=== PATIENT | female | born 1955 | race Caucasian/White ===

== ENCOUNTER 2023-08-28 07:12 | Observation (INO) ==
--- NOTE | 2023-08-04 14:56 | PAT Medication Instructions ---
Medication Instructions Date of Service August 04, 2023 Home Medications atorvastatin 40 mg tablet (Lipitor) 40 mg PO QAM fluoxetine 40 mg capsule (Prozac) 40 mg PO QAM lorazepam 0.5 mg tablet (Ativan) 0.5 mg PO TID PRN Anxiety losartan 25 mg tablet (Cozaar) 25 mg PO QAM omeprazole 20 mg capsule,delayed release 20 mg PO BID biotin 1,000 mcg chewable tablet 1,000 mcg PO QAM dicyclomine 10 mg capsule 10 mg PO UD PRN ibs ezetimibe 10 mg tablet (Zetia) 10 mg PO HS furosemide 20 mg tablet (Lasix) 20 mg PO UD PRN Edema sumatriptan succinate 50 mg tablet (Imitrex) 50 mg PO UD PRN migraines DO NOT take the morning of surgery losartan 25 mg tablet (Cozaar) 25 mg PO QAM biotin 1,000 mcg chewable tablet 1,000 mcg PO QAM dicyclomine 10 mg capsule 10 mg PO UD PRN ibs furosemide 20 mg tablet (Lasix) 20 mg PO UD PRN Edema Take morning of surgery With a small sip of water, OTHERWISE NOTHING TO EAT OR DRINK AFTER MIDNIGHT: atorvastatin 40 mg tablet (Lipitor) 40 mg PO QAM fluoxetine 40 mg capsule (Prozac) 40 mg PO QAM lorazepam 0.5 mg tablet (Ativan) 0.5 mg PO TID PRN Anxiety (if needed) omeprazole 20 mg capsule,delayed release 20 mg PO BID sumatriptan succinate 50 mg tablet (Imitrex) 50 mg PO UD PRN migraines (if needed) Take evening before surgery lorazepam 0.5 mg tablet (Ativan) 0.5 mg PO TID PRN Anxiety (if needed) omeprazole 20 mg capsule,delayed release 20 mg PO BID dicyclomine 10 mg capsule 10 mg PO UD PRN ibs (if needed) ezetimibe 10 mg tablet (Zetia) 10 mg PO HS furosemide 20 mg tablet (Lasix) 20 mg PO UD PRN Edema (if needed) sumatriptan succinate 50 mg tablet (Imitrex) 50 mg PO UD PRN migraines (if needed) Other Notes If you have any questions please call us at [phone] or [phone] or or [phone]
--- NOTE | 2023-08-13 08:42 | Anesthesiology Consultation ---
Date of Service August 13, 2023 Assessment & Plan (1) Encounter for pre-operative examination: - Check BSG AM DOS - Infectious disease screening: Per assessment on 08/13/23: No known infectious disease contacts or current infectious disease symptoms. No noted recent Covid positive test result. - Outpatient joint assessment: Pt currently scheduled for inpatient pathway. If surgeon requests review for outpatient joint pathway, patient is not recommended candidate for outpatient joint program from anesthesia standpoint. - Hx PONV: Patient request preop antiemetic if possible* - Preop EKG: Done 08/13/23- per report, U-waves present, r/o electrolyte imbalance. 08/13/23 BMP unremarkable. At anesthesiologist discretion DOS if updated EKG or further labs needed from their perspective. Chart Review Chart Review: Acceptable Risk for Surgery and Patient seen in Pre Admission Testing Teaching & Discussion Pre-Anesthesia Teaching/Discussion Notes: Instructed NPO after midnight before surgery,except medications with 15 cc of water. Medication instructions provided according to the PAT guidelines. History Surgery Operation Date: 08/28/23 07:00 Proposed Procedures p Right Total Knee Arthroplasty - Zeus Grossman MD Height/Weight Height: 5 ft 2 in Weight: 111.9 kg Allergies Allergy/AdvReac Type Severity Reaction Status Date / Time NSAIDS (Non-Steroidal AdvReac Unknown GI distress Verified 08/11/23 13:43 Anti-Inflamma rosuvastatin [From Crestor] AdvReac Unknown Altered Verified 08/11/23 13:43 liver function simvastatin [From Zocor] AdvReac Unknown Altered Verified 08/11/23 13:43 liver function Medications Home Medications Medication Instructions Recorded Confirmed Last Taken atorvastatin 40 mg tablet (Lipitor) 40 mg PO QAM 04/17/23 07/31/23 Unknown fluoxetine 40 mg capsule (Prozac) 40 mg PO QAM 04/17/23 07/31/23 Unknown lorazepam 0.5 mg tablet (Ativan) 0.5 mg PO TID PRN Anxiety 04/17/23 07/31/23 Unknown losartan 25 mg tablet (Cozaar) 25 mg PO QAM 04/17/23 07/31/23 Unknown omeprazole 20 mg capsule,delayed 20 mg PO BID 04/17/23 07/31/23 Unknown release biotin 1,000 mcg chewable tablet 1,000 mcg PO QAM 07/31/23 07/31/23 Unknown dicyclomine 10 mg capsule 10 mg PO UD PRN ibs 07/31/23 07/31/23 Unknown ezetimibe 10 mg tablet (Zetia) 10 mg PO HS 07/31/23 07/31/23 Unknown furosemide 20 mg tablet (Lasix) 20 mg PO UD PRN Edema 07/31/23 07/31/23 Unknown sumatriptan succinate 50 mg tablet 50 mg PO UD PRN migraines 07/31/23 07/31/23 Unknown (Imitrex) Past Medical History Medical History Swelling Chronic since knee replacement 3 years ago (left knee region) Depression History of tibial fracture Left, 10/2022- no sx intervention required (was in boot/brace for 2 months) Osteopenia Gastritis Plantar fasciitis Excessive thirst Chronic issue x months, felt possibly r/t diabetes- PCP aware/monitoring History of type 2 diabetes mellitus Diet controlled since weight loss Acid reflux High cholesterol HTN (hypertension) History of migraine headaches IBS (irritable bowel syndrome) Anxiety Exercise / Class Metabolic Activity III < 4 Walking/Shop/Light housework Past Family History Family History Mother History of blood clots Past Surgical History Surgical History Nausea and vomiting after administration of anesthetic agent Nugent's neuroma s/p removal History of loop electrical excision procedure (LEEP) History of cholecystectomy History of rotator cuff surgery right History of total left knee replacement History of endoscopy History of colonoscopy Past Anesthesia History No Hx of Anesthesia Complications * Father: post-op combative History of PONV History of PONV and Hx of Motion Sickness Social History Smoking Status: Former smoker Do You Dip or Chew Tobacco: No Smoking End Date: Quit approximately 2017 Hx Alcohol Use: No Hx Substance Use: No substance use type: does not use Review of Systems Patient denies chest pain, shortness of breath, fever, chills, cough, wheezing, palpitations. Physical Exam Vital Signs VITALS BP 122/65 P 84 TEMP 98.3 SP02 98%RA RESP 16 PHYSICAL Full cervical extension range of motion. Full TMJ range of motion. TMD 4 finger breaths Mallampati Score 3 Dentition: upper partial Lungs: clear throughout to auscultation Cardiac: regular rate and rhythm, no murmurs noted Spine: normal Carotid arteries: negative bruit Extremities: non-pitting BL LE edema Short, thick neck Lab Results Anesthesia Preop Results Results Anesthesia Widget: WBC 8.26 K/ul (4.8-10.8) 08/13/23 Hgb 12.7 g/dl (12.0-16.0) 08/13/23 Hct 41.2 % (37.0-47.0) 08/13/23 Plt 299 K/uL (130-400) 08/13/23 Na 140 mmol/L (136-145) 08/13/23 K 3.8 mmol/L (3.5-5.1) 08/13/23 Cl 105 mmol/L (98-107) 08/13/23 CO2 27 mmol/L (21-32) 08/13/23 BUN 19 mg/dl (6-23) 08/13/23 Creat 0.90 mg/dl (0.6-1.2) 08/13/23 Glucose Level 149 mg/dl (70-99(Fasting)) H 08/13/23 PT 10.2 Seconds (9.0-12.0) 08/13/23 PTT 24 Seconds (21-31) 08/13/23 INR 0.9 (0.9-1.1) 08/13/23 HA1c 6.5 % (4.5-5.6) H 08/13/23 Blood Type A Positive 08/13/23 Antibody Screen NEGATIVE 08/13/23 Testing Electrocardiogram Date: 08/13/23 NSR at 76bpm. U-waves present, r/o electrolyte imbalance. Chest X-Ray Date: 08/13/23 FINDINGS: PA and lateral chest radiographs are obtained. No prior studies are available for comparison at the time of dictation. The cardiomediastinal silhouette is unremarkable. The lungs and pleural spaces are clear. There is no pneumothorax. The bony thorax appears intact. Degenerative change is noted in the thoracic spine. Cholecystectomy clips are seen in the right upper quadrant. IMPRESSION: No active disease in the chest.
--- NOTE | 2023-08-22 09:15 | History & Physical Report ---
Date of Service August 22, 2023 Assessment & Plan (1) Right knee DJD: 67-year-old female with underlying obesity status post gastric bypass surgery status post left knee replacement with right knee DJD. She has failed conservative measures. She is got advanced arthritis. She would like to proceed with right knee replacement. Plan: Dannie taken to the operating do right total knee replacement for the risks Mente this procedure explained the patient clued but not limited to DVT PE infection neurological and vascular bleeding palm pain limb range of motion stenosis failure of symptoms incomplete relief of symptoms excetra. The patient understands and desires to proceed. Informed consent was obtained. I did tell there is no guarantee this will do better than the other side and I do not see any obvious problems with the other right knee replacement. She understands this and would like to proceed. The patient apparently has had problems with her urethra and would like to avoid using a Daugherty catheter. We will plan placing a Daugherty. She is planned to be discharged to home and do outpatient therapy. History of Present Illness Chief Complaint: . Right knee pain. Primary Care Provider: NO PCP . Patient is a 67-year-old female from [facility] who presents for surgical treatment of her right knee. She has a long history of knee problems had her left knee replaced with Dr. Almanzar several years ago Sod. Has not done well great from that. Despite this she continues to be bothered by right knee pain discomfort. She has been through extensive conservative treatment including a steroid shots and viscosupplementation has just become less successful over time. The more she is up and onto more it hurts. She is hoping this knee will be more successful. Allergies Allergy/AdvReac Type Severity Reaction Status Date / Time NSAIDS (Non-Steroidal AdvReac Unknown GI distress Verified 08/11/23 13:43 Anti-Inflamma rosuvastatin [From Crestor] AdvReac Unknown Altered Verified 08/11/23 13:43 liver function simvastatin [From Zocor] AdvReac Unknown Altered Verified 08/11/23 13:43 liver function Home Medications Medication Instructions Recorded Confirmed Type atorvastatin 40 mg tablet (Lipitor) 40 mg PO QAM 04/17/23 07/31/23 History fluoxetine 40 mg capsule (Prozac) 40 mg PO QAM 04/17/23 07/31/23 History lorazepam 0.5 mg tablet (Ativan) 0.5 mg PO TID PRN Anxiety 04/17/23 07/31/23 History losartan 25 mg tablet (Cozaar) 25 mg PO QAM 04/17/23 07/31/23 History omeprazole 20 mg capsule,delayed 20 mg PO BID 04/17/23 07/31/23 History release biotin 1,000 mcg chewable tablet 1,000 mcg PO QAM 07/31/23 07/31/23 History dicyclomine 10 mg capsule 10 mg PO UD PRN ibs 07/31/23 07/31/23 History ezetimibe 10 mg tablet (Zetia) 10 mg PO HS 07/31/23 07/31/23 History furosemide 20 mg tablet (Lasix) 20 mg PO UD PRN Edema 07/31/23 07/31/23 History sumatriptan succinate 50 mg tablet 50 mg PO UD PRN migraines 07/31/23 07/31/23 History (Imitrex) Past Med/Surg History Medical History Swelling Chronic since knee replacement 3 years ago (left knee region) Depression History of tibial fracture Left, 10/2022- no sx intervention required (was in boot/brace for 2 months) Osteopenia Gastritis Plantar fasciitis Excessive thirst Chronic issue x months, felt possibly r/t diabetes- PCP aware/monitoring History of type 2 diabetes mellitus Diet controlled since weight loss Acid reflux High cholesterol HTN (hypertension) History of migraine headaches IBS (irritable bowel syndrome) Anxiety Surgical History Nausea and vomiting after administration of anesthetic agent Nugent's neuroma s/p removal History of loop electrical excision procedure (LEEP) History of cholecystectomy History of rotator cuff surgery right History of total left knee replacement History of endoscopy History of colonoscopy Family History Mother History of blood clots Social History Smoking Status: Former smoker Do You Dip or Chew Tobacco: No; Hx Alcohol Use: No Hx Substance Use: No Preferred Language: Palauan Communication Ability: Effective Market Relationship Manager Required: No Beliefs That Will Affect Care: None Current Living Situation: Alone Feels Safe at Home: Yes Assistive Devices: Denture - Upper and Glasses Review of Systems All systems reviewed & are unremarkable except as noted in HPI & below. Physical Exam . Physical examination of the right knee reveal patient walks without any obvious limp. She got fairly neutral alignment to her knee. Moderate to large soft tissue envelope. She is diffusely tender to palpate around her knee. Small knee effusion. Range of motion is 5-1 25. There is no instability. Examination left knee reveals well-healed incision. Large soft tissue envelope. Range of motion 0-1 20. No significant warmth or redness. No pain with hip motion. Constitutional WD/WN, vitals as above Neck trachea midline, no thyromegaly Respiratory normal respiratory effort, lungs clear to auscultation Cardiovascular RRR, no murmur, no edema Gastrointestinal (Abdomen) normal bowel sounds, soft, nontender, no hepatosplenomegaly Results & Data Results & Data Laboratory Results . Diagnostic Findings . X-rays of the right knee reviewed. Shows advanced right knee DJD. She has complete loss of medial joint space. She got subchondral sclerosis. The left knee replacement looks to be in good position without obvious problems. PG Care Time/CCT Total # of Minutes Spent Total Time Spent with Patient: Total time spent is greater than 50% in coordination of care (as documented) at patient's floor/unit and/or counseling patient: Coding Level of Care Code None Diagnoses Right knee DJD M17.11
[~2023-08-28 07:12] MED LIST: ACETAMINOPHEN 500 MG TAB PO SCH; BUPIVACAINE 0.25% PF 30 ML VIAL ONE; BUPIVACAINE 0.5 % 5 MG/1 ML PF 10ML VIAL ONE; CeleBREX 200 MG CAP PO SCH; FAMOTIDINE 20 MG TAB PO SCH; LR 500ML BOLUS, THEN 15ML/HR IV SCH; LR 60ML/HR IV SCH; METOCLOPRAMIDE HCL 10 MG TABLET PO SCH; ROPIV 0.5% 246mg, Ketorolac 30mg, EPINEPHrine 0.5mg in NSS INFIL SCH; Scopolamine 1 MG TDSY TD SCH; TRANEXAMIC ACID 1,000 MG **IV Intra-op IV SCH; ceFAZolin 2000MG 2,000 MG/15 ML SYR IV SCH; dexAMETHasone**PF** 10 MG/ML VIAL IV SCH
[2023-08-28] MEDS ORDERED: fentaNYL citrate PF 100 MCG/2 ML VIAL ONE (07:27)
[2023-08-28] MEDS ORDERED: MIDAZOLAM HCL 1 MG/ML 2ML VIAL ONE (07:27)
--- OUTSIDE RECORDS SUMMARY | 2023-08-28 07:54 | External Medical Summary | Summary of Care ---
Author Name Unknown Organization [facility] Address [address] [place] [address] Phone [phone] Care Team Providers Care Firefighter Type One Name Role Phone Andres Mendoza DO Primary Care Provid er Encounter Details Date Type Department Care Team ([facility] st Contact Info) Description 08/19/2023 Orders Only Family Practice [facility] [address] [place] [phone] Andres Mendoza DO [address] [place] [address] Allergies Active Allergy Reactions Criticality Noted Date Comments Rosuvastatin Calcium Muscle pain Low 09/01/2008 LFT elevated Nsaids 02/05/2021 Other reaction(s): stomach pains Other reaction(s): stomach pains Simvastatin Muscle pain Low 09/01/2008 LFT elevated documented as of this encounter (statuses as of 08/19/2023) Medications Medication Sig Dispensed Refills Start Date End Date Status Furosemide 20 MG Oral Tablet (Lasix)Indications :Dependent edema TAKE 1 TABLET BY MOUTH EVERY DAY NEEDED for fluid accumulation or weight gain 90 Tablet 1 09/30/2022 Active Nystatin PowderIndications: Scalp irritation Use 1 Application Dosing Unit as directed in the morning and 1 Application Dosing Unit at noon and 1 Application Dosing Unit before bedtime. Apply to under breast area. 3 Each 1 09/30/2022 Active Omeprazole 20 MG Oral Capsule Delayed Release (PriLOSEC)Indicati ons:Gastroesophage al reflux disease without esophagitis TAKE 1 CAPSULE BY MOUTH TWICE DAILY 1 HOUR BEFORE BEFORE FIRST MEAL OF THE DAY Strength: 20 mg 180 Capsule 1 09/30/2022 Active Dicyclomine HCl 10 MG Oral Capsule (Bentyl)Indication s:Other irritable bowel syndrome TAKE 1 CAPSULE BY MOUTH THREE TIMES DAILY (morning, noon, and before bedtime) 90 Capsule 5 11/04/2022 Active Ondansetron HCl 8 MG Oral Tablet (Zofran)Indication s:Irritable bowel syndrome with both constipation and diarrhea Take 1 Tablet by mouth every 8 hours as needed for Nausea. 30 Tablet 3 02/10/2023 Active Phenazopyridine HCl 200 MG Oral Tablet (Pyridium) Take 1 Tablet by mouth 3 times a day as needed for Pain, Breakthrough. After meals for pain with urination 6 Tablet 0 03/10/2023 Active Additional Information Patient not taking.Reported on 05/01/2023 Nystatin [id number] UNIT/GM External Cream Apply topically to affected area 3 times a day. To affacted area for two weeks. 30 g 1 03/22/2023 Active FLUoxetine HCl 40 MG Oral Capsule (PROzac)Indication s:Anxiety state Take 1 Capsule by mouth in the morning. 90 Capsule 2 04/10/2023 Active Losartan Potassium 25 MG Oral Tablet (Cozaar)Indication s:Hypertension associated with diabetes Take 1 Tablet by mouth in the morning. 90 Tablet 2 04/10/2023 Active Atorvastatin Calcium 80 MG Oral Tablet (Lipitor)Indicatio ns:Hyperlipidemia associated with type 2 diabetes mellitus TAKE 1 TABLET BY MOUTH IN THE MORNING 90 Tablet 1 04/10/2023 Active Ezetimibe 10 MG Oral Tablet (Zetia)Indications :Hyperlipidemia associated with type 2 diabetes mellitus Take 1 Tablet by mouth in the morning. 90 Tablet 1 05/01/2023 Active SUMAtriptan Succinate 50 MG Oral Tablet (Imitrex)Indicatio ns:Migraine without aura and without status migrainosus, not intractable One pill by mouth at onset of migraine. May repeat every two hours but not more than 4 tablets in 24 hours. 6 Tablet 5 06/30/2023 Active LORazepam 0.5 MG Oral Tablet (Ativan)Indication s:Anxiety state take 1 tablet by mouth 2-3 times daily as needed for anxiety 90 Tablet 0 08/02/2023 Active documented as of this encounter (statuses as of 08/19/2023) Active Problems Problem Noted Date Diagnosed Date Uterine leiomyoma 07/30/2023 Primary osteoarthritis of both knees 05/01/2023 Closed fracture of lower end of left tibia with routine healing 10/21/2022 Dependent edema 10/15/2021 Irritable bowel syndrome wit h both constipation and diarrhea 10/30/2020 Type 2 diabetes mellitus wit h stage 3a chronic kidney disease 03/23/2020 Recurrent major depressive disorder, in partial remission 10/12/2019 Other mixed anxiety disorders 10/12/2019 Morbid obesity with body mass index of 40.0-44.9 in adult 01/04/2019 Overview: More specific. KRISTIE III with severe dysplasia 08/02/2018 SHARI (stress urinary incontinence, female) 2017 Hypertension associated with diabetes 12/25/2015 Hyperlipidemia associated with type 2 diabetes m ellitus 01/09/2010 Gastroesophageal reflux disease without esophagi tis 12/17/2004 Migraine without aura and wi thout status migrainosus, not intractable documented as of this encounter (statuses as of 08/19/2023) Resolved Problems Problem Noted Date Diagnosed Date Resolved Date Pelvic pressure in female 06/09/2023 Vaginal burning 06/09/2023 07/30/2023 Chronic kidney disease with symptom management only, stage 3 (moderate) 07/16/2021 03/0 03/2022 Diabetes mellitus with stage 3 chronic kidney disease 03/19/2020 07/16/2021 Overview: Per CKD protocol Diabetes mellitus without complication 10/12/2019 03/23/2020 Body mass index (BMI) of 40. 0 to 44.9 in adult 04/18/2019 03/19/2020 Overview: Per Obesity protocol Duplicate. Prediabetes 01/04/2019 03/25/2020 Postoperative state 08/25/2018 04/04/20 19 Papanicolaou smear of cervix with atypical squamous cells cannot exclude high grade squamous intraepithelial lesion (ASC-H) 07/27/2018 03/19/2020 Overview: Historical. Encounter for smoking cessation counseling 07/27/2018 04/04/2019 Encounter for surveillance of abnormal nevi 01/22/2016 04/04/2019 Overview: Mild dysplastic nevi (L distal anterior thigh, R upper abdomen) Dyslipidemia, goal to be determined 12/17/2004 01/09/2010 documented as of this encounter (statuses as of 08/19/2023) Immunizations Name Administration Dates Next Due COVID-19 mRNA, LNP-s, No Pre serve, 2-Dose Series (Moderna) 10/13/2020,09/08/2020 COVID-19, mRNA, LNP-s, PF, B ooster, 100mcg/0.5mg (Moderna) 06/12/2021 Pneumococcal Conjugate Vacc, 13 Valent (Prevnar) 01/04/2019 Pneumococcal Polysaccharide PPV23 (Pneumovax) 03/23/2020 Seasonal Influenza, PF, 6 M & above, IM , (FluLaval or Fluzone) 07/06/2018 Seasonal Influenza, Quadriva lent Hd (Fluzone Hd) 06/17/2022 Seasonal Influenza, Quadriva lent Hd, 65+ Yrs 06/18/2020 Seasonal Influenza, Split, I IV3, With Preserve, Inj 05/28/2016,06/14/2015,06/11/2014,05/24,06/14/2011 Seasonal Influenza, Trivalen t, Adjuvanted, 65+ yrs 05/24/2021,05/28/2019 Zoster Vaccine Recombinant (Shingrix) 07/18/2020 ,05/01/2020 documented as of this encounter Social History Tobacco Use Types Packs/Day Years Used Date Smoking Tobacco: Former Cigarettes 0.5 Q uit: 10/19/2018 Smokeless Tobacco: Never Alcohol Use Standard Drinks/Week Comments Not Currently 0 (1 standard drink = 0.6 oz pur e alcohol) PHQ-2 Answer Date Recorded PHQ Adult Total Score 0 10/21/2022 Hunger Vital Sign Answer Date Recorded Within the past 12 months, y ou worried that your food would run out before you got the money to buy more. Never true 09/21/19 21 Within the past 12 months, t he food you bought just didn't last and you didn't have money to get more. Never true 09/21/2020 Sex and Gender Information Value Date Recorded Sex Assigned at Female 01/04/2019 11:59 AM EDT Gender Identity Female 01/04/2019 11:59 AM EDT Sexual Orientation Straight 01/04/2019 11 :59 AM EDT Job Start Date Occupation Industry Not on file Not on file Not on file documented as of this encounter Plan of Treatment Upcoming Encounters Date Type Department Care Team ([facility] Contact Info) Description 09/23/2023 2:40 PM EST Office Visit Family Practice [facility] [address] [place] [phone] Andres Mendoza DO [address] [place] [phone] 09/30/2023 9:20 AM EST Office Visit Dermatology [address] [phone] Javan Valiente PA-C [address] [place] [phone] Scheduled Procedures Name Priority Associated Diagnoses Date/Ti me COLONOSCOPY FLEXIBLE PROXIMAL DIAGNOSTIC Recall History of colon polyps Health Maintenance Due Date Last Done Comments DTaP,Tdap,and Td Vaccines (1 - Tdap) 1972 Hepatitis B (1 of 3 - Risk 3-dose series) 2013 COVID-19 Vaccine (4 - season) 2023 06/12/2021, 10/13/2020, 09/08/2020 Influenza Vaccine (FLU shot) (#1) 2023 06/17/2022, 05/24/2021, 06/18/2020, Additional history exists Depression Screening 10/22/2023 10/21/2022 Diabetic Eye Exam 10/22/2023 10/21/2022, , 09/21/2020, Additional history exists GFR 10/26/2023 08/13/2023, 04/10, 10/15/2022, Additional history exists HbA1c 10/26/2023 08/13/2023, 04/10, 10/15/2022, Additional history exists Mammogram 03/31/2024 03/31/2023, 03/10, 03/26/2022, Additional history exists CKD HGB USE SMARTSET 45398 04/27/202408/13, 04/27/2023, 04/27/2023, Additional history exists CKD PHOS USE SMARTSET 42858 04/27/202404/10, 10/15/2022, 03/15/2021 Diabetic Foot Exam 05/01/2024 05/01/2023, 0 01/17/2022, 03/21/2021, Additional history exists Albumin/Creatinine Ratio 06/01/2024 023, 04/27/2023, 06/12/2022, Additional history exists COLONOSCOPY-EVERY 3 YRS AGES 18-100 05/05/2025 05/05/2022, 04/04/2019, 04/04/2019 Lipid Panel 04/27/2028 04/27/2023, 0303/2023, 04/16/2022, Additional history exists DXA Scan 12/19/2029 12/19/2022, 04/19/2019 Pneumococcal Vaccine: 65+ Years Completed 03/23/2020, 01/04/2019 Zoster Vaccines Completed 07/18/2020, 05/01/2020 GARDASIL-HPV IMMUNIZATION SERIES Aged Out No longer eligible based on patient's age to complete this topic MENINGOCOCCAL (MENACTRA/MENVEO) Aged Out No longer eligible based on patient's age to complete this topic documented as of this encounter Medical Devices Not on filedocumented as of this encounter Procedures Procedure Name Priority Date/Time Associated Diagnosis Comments CHEMISTRY-OUTSIDE Routine 08/13/2023 documented in this encounter Results * (ABNORMAL) CHEMISTRY-OUTSIDE (08/13/2023) Not all results display below - see scan for full detail OUTSIDE LAB (SEE SCANNED REPORT) Comment:SEE SCAN: CBC, PT, I NR, PTT, APTT, C REACTIVE PROTEIN, BMP, HBGA1C CREATININE-OUTSID E LAB 0.90 0.6 - 1.2 MG/DL OUTSIDE LAB (SEE SCANNED REPORT) EGFR-OUTSIDE LAB 75.6 ML/MIN/1.7 3M2 OUTSIDE LAB (SEE SCANNED REPORT) POTASSIUM-OUTSIDE LAB 3.8 3.5 - 5.1 MMOL/L OUTSIDE LAB (SEE SCANNED REPORT) GLUCOSE-OUTSIDE LAB 149(A) 70 - 99 MG/DL OUTSIDE LAB (SEE SCANNED REPORT) HOURS FASTING OUTSID E LAB (SEE SCANNED REPORT) TRIGLYCERIDES-OUT SIDE LAB OUTSIDE LAB (SEE SCANNED REPORT) CHOLESTEROL-OUTSI DE LAB OUTSIDE LAB (SEE SCANNED REPORT) HDL-OUTSIDE LAB OUTS HECTOR LAB (SEE SCANNED REPORT) CHOL/HDL RATIO-OUTSIDE LAB OUTSIDE LA B (SEE SCANNED REPORT) LDL (CALCULATED)-OUTS HECTOR LAB OUTSIDE LAB (SEE SCANNED REPORT) LDL (DIRECT MEASURE)-OUTSIDE LAB OUTSIDE LAB (SEE SCANNED REPORT) HEMOGLOBIN, [id number] LAB 6.5(A) 4.5 - 5.6 % OUTSIDE LAB (SEE SCANNED REPORT) PHOSPHORUS-OUTSID E LAB OUTSIDE LAB (SEE SCANNED REPORT) PTH-OUTSIDE LAB OUTS HECTOR LAB (SEE SCANNED REPORT) MICROALBUMIN RATIO-OUTSIDE LAB OUTSIDE LA B (SEE SCANNED REPORT) PROTEIN, UA-OUTSIDE LAB OUTSIDE LAB (SEE SCANNED REPORT) HEMOGLOBIN-OUTSID E LAB 12.7 12.0 - 16.0 G/DL OUTSIDE LAB (SEE SCANNED REPORT) 08/13/2023 History Per Patient LABORATORY OUTSIDE LAB (SEE SCANNED REPORT) documented in this encounter Care Teams Firefighter Type One Relationship Specialty Start Date End Date Andres Mendoza DO [address] [place] [phone] PCP - General Internal Medicine 09/21/20 documented as of this encounter
[2023-08-28] MEDS ORDERED: fentaNYL citrate PF 100 MCG/2 ML VIAL IV PRN (08:18)
[2023-08-28] MEDS ORDERED: ATROPINE SULFATE 0.1 MG/ML 10ML SYR IV PRN (08:18)
[2023-08-28] MEDS ORDERED: ePHEDrine sulfate 50 MG/ML AMP IV PRN (08:18)
[2023-08-28] MEDS ORDERED: PROMETHAZINE HCL 6.25 MG in SODIUM CHLORIDE 0.9% 50 ML IV PRN (08:18)
[2023-08-28] MEDS ORDERED: ONDANSETRON INJ 2 MG/ML 2 ML VIAL IV PRN ×2 (08:18→13:10)
--- NOTE | 2023-08-28 09:01 | History & Physical Bridge Note ---
Date of Service August 28, 2023 History & Physical Bridge Note I have examined the patient, reviewed the History & Physical and in the interval since the performance of the History & Physical I have noted the following changes of clinical significance: no changes noted
[2023-08-28] MEDS ORDERED: ORTHO JOINT ANESTHETIC ONE (09:25)
[2023-08-28] MEDS ORDERED: ONDANSETRON INJ 2 MG/ML 2 ML VIAL ONE (09:34)
[2023-08-28] MEDS ORDERED: PROPOFOL IV EMULSION 10 MG/ML 20 ML VIAL IV ONE ×2 (09:34→13:05)
[2023-08-28] MEDS ORDERED: LIDOCAINE 2% 2 ML VIAL/AMP(20MG/ML) INFIL ONE (09:34)
[2023-08-28] MEDS ORDERED: PHENYLEPHRINE HCL 10 MG/ML VIAL ONE (10:22)
--- NOTE | 2023-08-28 11:17 | Operative Report ---
PG Post Operative Report Pre & Post Diagnosis Operation Date: 08/28/23 08:50 Pre-Op Diagnosis: Right Knee Degenerative Joint Disease Post-Op Diagnosis: Right Knee Degenerative Joint Disease I identified the patient and participated in the time-out.: Yes Procedure Operation Date: 08/28/23 08:50 Actual Procedures p Right Total Knee Arthroplasty(Right) - Zeus Grossman MD Surgeon Zeus Grossman MD Diesel Fleet Mechanic Oscar Palmer PA-C Estimated Blood Loss 50 Findings Consistent with Post-Op Diagnosis Operative findings revealed a large soft tissue envelope. She had extensive grade 4 [id number] disease of the medial and patellofemoral compartments. The lateral compartment is pretty well spared. Moderate-sized joint effusion. Specimens Right knee sent for pathology Anesthesia Type Spinal MAC Complications none Disposition Accompanied Patient To Recovery: No Indications Patient is 67-year-old female is had a fairly long history of the bilateral knee pain discomfort gradually gotten worse over time. She did have her left knee replaced several years ago in [place]. Does she continue to be bothered and limited by right knee pain discomfort. She failed conservative measures. She elected proceed with right total knee arthroplasty. Description of Procedure Operative implants consisted of: 1. Biomet Vanguard size 60 right Po stabilized femoral component. 2. Biomet size 63 tibial tray. 3. 12 mm post stabilized polyethylene insert. 4. 28 x 8 all poly patella. The patient was taken the operating, identified, placed on the operating table i n the supine position. All contact areas were properly padded. IV antibiotics tried by anesthesia team. A spinal anesthetic and abductor canal block had been divided holding area. A right thigh tent was then placed. The right lower extremity was then prepped and draped in usual sterile fashion. The right leg was elevated exsanguinated with use of an Esmarch and the tourniquet was placed at 300 mmHg. An anterior approach to the right knee was then performed through a longitudinal incision centered over the patella. Sharp dissection Through subcutaneous tissue down to the extensor mechanism. A medial parapatellar arthrotomy incision was made. Some subperiosteal dissection was carried out medially. The fat pad was resected from Neath patella tendon. Lateral patellofemoral ligament was released. Patella subluxated laterally knee was flexed. The osteophytes taken on distal femur. The ACL PCL released from distal femur and the tibia subluxated anteriorly. The external tibial alignment jig was then placed in the interface the tibia and adjusted 12 mm medially. Proximal tibial cut was made remove about a millimeter or 2 of bone from the medial side. Tibia sized to a size 63. Attention drawn the femur. The distal femur was then with a sharp drill. Intramedullary canal was suction. A Xiao the 5 degree valgus cutting guide was placed. Distal femoral cutting block was pinned in place. Distal femoral cut was made to take an additional 3 mm of bone off distal femur. The femur was then sized to a size 60. The AP cutting block was pinned parallel to the epicondylar axis which was 3 degrees of external rotation. The anterior cut, anterior chamfer, posterior cut, posterior chamfer cuts were made. The box cutting guide was placed in just slight lateral and the box cut was made. The knee was flexed. The remnants of the medial and lateral menisci were excised. The osteophyte taken off the posterior aspect the femur. Trial femoral component was placed. Tibial tray was pinned Jennifer external rotation and the drill and stem punch were used to create defect in proximal tibia for the tibial tray. The knee was then trialed and the 12 mm insert fit most appropriately. Attention drawn the patella. The patella is cleaned of all soft tissue. Patella thickness measured 18 mm in thickness was cut down to 12. Sized to a size 28 patella. The locals were drilled for the 28 patella. The lateral arthritis removed. Patella button was placed. Knee was taken through range of motion patella tracked nicely with no thumbs test. Attention drawn to placing permanent components. Nupathe all trial components were removed. Bone plug was placed in the distal femur limit blood loss. Double batch Palacos G cement was mixed. Biomet Vanguard size 60 right posterior stabilized femoral component, size 63 tibial tray, a 12 mm post stabilized polyethylene insert, and a 28 x 8 all poly patella then cemented in place. The knee was brought out into full extension till cement hardened. Final cement check was then performed. Pericapsular tissues were injected with total 100 cc of combination of 20 cc Exparel, 30 cc normal saline, 50 cc of quarter percent Marcaine with epinephrine. The patient did receive 1 g tranexamic acid. The tourniquet was then let down for final tourniquet time of 55 minutes. Hemostasis reduced electrocautery. Extensor Meclomen closed with combination 1 PDS suture #1 Vicryl suture in a [id number]-fq-[id number] fashion. Extensor Meclomen checked found to be intact the subcutaneous tissue then closed with 2 Dexon suture in buried interrupted fashion skin was closed skin chey. Leg was then cleaned and dried and sterile dressing with Xeroform, 4 fours, sterile cast padding, Sanjay bandage were applied. Patient then transferred to the recovery room in stable condition. Patient tolerated procedure well and there were no complications. Oscar Palmer, my physician assistant sales director, was present for the entire procedure. His assistance was essential and required for appropriate patient positioning, prepping and draping, surgical exposure, performing the technical details of the operation, placement the implants, closure of the wound, and placement of the sterile bandage. I attest to the content of the Intraoperative Record and any orders documented therein. Any exceptions are noted below.
--- NOTE | 2023-08-28 12:46 | XRay Report ---
XR knee RT 1 or 2V routine HISTORY: 67 years-old Female Surgical Post Op right knee arthroplasty COMPARISON: Radiographs 04/17/2023 TECHNIQUE: 2 views of the right knee FINDINGS: Total joint arthroplasty with patellar resurfacing. Anterior midline skin chey with expected posto perative soft tissue swelling and deep tissue air. No acute fracture, dislocation or unexpected opaqu e foreign body. IMPRESSION: Total joint arthroplasty with expected postoperative changes. ACT 112: Negative or not required by law. The above report was generated using voice recognition software. It may contain grammatical, syntax o r spelling errors. Electronically signed by: Fei Gill M.D. 08/28/2023 12:44 PM
[2023-08-28] MEDS ORDERED: bisacodyL 10 MG SUPP PR PRN (13:10)
[2023-08-28] MEDS ORDERED: NALOXONE HCL 0.4 MG/1 ML VIAL/CARP IV PRN (13:10)
[2023-08-28] MEDS ORDERED: SODIUM CHLORIDE 0.9% 1,000 ML IV SCH (13:10)
[2023-08-28] MEDS ORDERED: LORazepam 0.5 MG TAB PO PRN (13:10)
[2023-08-28] MEDS ORDERED: METOCLOPRAMIDE HCL INJ 5 MG/ML 2 ML VIAL IV PRN (13:10)
[2023-08-28] MEDS ORDERED: ALUMINUM/MAGNESIUM SUSP 30 ML UDC PO PRN (13:10)
[2023-08-28] MEDS ORDERED: MAGNESIUM HYDROXIDE SUSP 30 ML UDC PO PRN (13:10)
[2023-08-28] MEDS ORDERED: FUROSEMIDE 20 MG TAB PO PRN (13:10)
[2023-08-28] MEDS ORDERED: HYDROmorphone INJ 0.5 MG/0.5 ML SYR IV PRN (13:10)
[2023-08-28] MEDS ORDERED: DICYCLOMINE HCL 10 MG CAP PO PRN (13:10)
[2023-08-28] MEDS ORDERED: SUMAtriptan succinate 50 MG TAB PO PRN (13:10)
--- NOTE | 2023-08-28 13:40 | Anesthesiology Progress Note ---
Date of Service August 28, 2023 Anesthesia Post Procedure Vital Signs Vital Signs: Temp Pulse Pulse Resp BP BP Pulse Ox 08/28/23 13:14 36.6 C 93 H 20 118/82 96 08/28/23 12:43 37 C 92 H 18 125/83 97 08/28/23 12:25 36.4 C L 85 16 134/89 94 08/28/23 12:11 85 20 117/73 97 08/28/23 12:01 36.4 C L 88 16 108/80 97 08/28/23 11:51 87 20 126/75 99 08/28/23 11:41 89 14 122/77 99 08/28/23 11:31 97 H 22 108/86 100 08/28/23 11:21 96 H 25 H 129/70 99 08/28/23 11:13 36.1 C L 98 H 17 111/67 96 08/28/23 07:37 36.9 C 86 20 159/88 H 95 O2 Del Method O2 Flow Rate 08/28/23 13:14 Room Air 08/28/23 12:43 Room Air 08/28/23 12:25 Room Air 0 08/28/23 12:11 Room Air 0 08/28/23 12:01 Room Air 0 08/28/23 11:51 Room Air 0 08/28/23 11:41 Room Air 0 08/28/23 11:31 Oxymask 8 08/28/23 11:21 Oxymask 8 08/28/23 11:13 Oxymask 8 08/28/23 07:37 Room Air Pain Intensity Right Knee: Pain Intensity: 3 Chest: Pain Intensity: 3 Transfer of Care Handoff Completed per policy Notes Mental Status: alert / awake / arousable Patient Amnestic to Procedure: Yes Nausea / Vomiting: adequately controlled Pain: adequately controlled Airway Patency, RR, SpO2: stable & adequate BP & HR: stable & adequate Hydration State: stable & adequate Neuraxial Anesthesia: was administered and sensory block is resolving Anesthetic Complications: no major complications apparent and Pt Satisfied with anesthetic care
[2023-08-28] MEDS: ACETAMINOPHEN 500 MG TAB PO SCH ×2 (14:07→20:32)
[2023-08-28] MEDS: KETOROLAC TROMETHAMINE 15 MG/ML VIAL IV SCH ×2 (14:08→20:31)
[2023-08-28] MEDS ORDERED: TRANEXAMIC ACID / 0.7% NACL 1,000 MG/100 ML BAG IV SCH (17:15)
[2023-08-28] MEDS: ceFAZolin 2000MG 2,000 MG/15 ML SYR IV SCH (17:17)
[2023-08-28] MEDS: Scopolamine CHECK PATCH PLACEMENT SCH (17:17)
[2023-08-28] MEDS: ASCORBIC ACID 500 MG TAB PO SCH (17:18)
[2023-08-28] MEDS: DOCUSATE SODIUM 100 MG CAP PO SCH (20:31)
[2023-08-28] MEDS: ASPIRIN 81 MG ECTAB PO SCH (20:32)
[2023-08-28] MEDS: PANTOprazole 40 MG TAB PO SCH (20:32)
[2023-08-28] MEDS ORDERED: SENNA 8.6 MG TAB PO SCH ×2 (21:00)
[2023-08-28] MEDS ORDERED: EZETIMIBE 10 MG TAB PO SCH (21:00)
[2023-08-29] MEDS: Scopolamine CHECK PATCH PLACEMENT SCH ×2 (00:12→08:16)
[2023-08-29] MEDS: oxyCODONE HCL IR 5 MG TAB (IMMEDIATE RELEASE) PO PRN ×2 (00:33→10:07)
[2023-08-29] MEDS: ceFAZolin 2000MG 2,000 MG/15 ML SYR IV SCH (00:33)
[2023-08-29] MEDS: KETOROLAC TROMETHAMINE 15 MG/ML VIAL IV SCH ×2 (02:01→08:14)
[2023-08-29 06:27] LABS: Hematocrit (blood only) 32.9 % (37.0-47.0); Hemoglobin 10.6 g/dl (12.0-16.0); Mean Corpuscular Hemoglobin 26.4 pg (25.0-34.0); Mean Corpuscular Hgb Conc 32.2 g/dL (32.0-36.0); Mean Corpuscular Volume 81.8 fL (80.0-100.0); Mean Platelet Volume 10.7 fL (9.4-12.4); Platelet Count 250 K/uL (130-400); RDW Coefficient of Variation 14.5 % (11.5-14.5); RDW Standard Deviation 43.3 fL (36.4-46.3); Red Blood Count 4.02 M/uL (4.20-5.40); White Blood Count 16.06 K/ul (4.8-10.8)
[2023-08-29 06:48] LABS: BUN Creatinine Ratio 26.7 (10-20); Calcium 9.1 mg/dl (8.6-10.3); Creatinine Clr Calc Pharmacy 62.5 ml/min; Est GFR (African American) 65.8 ml/min; Est GFR (Non-African American) 56.8 ml/min; Potassium 4.2 mmol/L (3.5-5.1)
[2023-08-29] MEDS ORDERED: dexAMETHasone 10 MG in SYRINGE 0 ML IV SCH (08:00)
[2023-08-29] MEDS: ACETAMINOPHEN 500 MG TAB PO SCH (08:14)
[2023-08-29] MEDS: ASPIRIN 81 MG ECTAB PO SCH (08:15)
[2023-08-29] MEDS: DOCUSATE SODIUM 100 MG CAP PO SCH (08:15)
[2023-08-29] MEDS: ASCORBIC ACID 500 MG TAB PO SCH (08:15)
[2023-08-29] MEDS: PANTOprazole 40 MG TAB PO SCH (08:16)
--- NOTE | 2023-08-29 08:17 | Surgery Progress Note ---
Date of Service August 29, 2023 Assessment & Plan (1) Status post right knee replacement: Plan: 67-year-old female postop day 1 from a right knee replacement doing pretty well. Pains controlled. She is neurologically intact. Plan: 1. DVT prophylaxis including thigh-high teds, SCDs, baby aspirin twice a day. 2. PT/OT. Weight-bear as tolerated right total knee protocol. 3. Pain control doing pretty well with current pain regimen. Will continue using the oxycodone as needed and imuyg-[id number] Tylenol and Toradol. 4. Disposition plan to discharge to home she is going to outpatient therapy. Will see how therapy goes today. Admission and Anticipated Discharge Date Admission Date: August 28, 2023 Subjective 67-year-old female postop day 1 from right knee replacement. She is doing pretty well. Pain is very manageable. No chest pain or shortness of breath. Not feeling dizzy or lightheaded. This has been much less painful than what she remembers from her last knee. Physical Exam Physical Exam: Physical examination of the right leg reveals the dressing be clean dry and intact. Leg is well aligned. She can dorsiflex and plantarflex her foot appropriately. She is neurologically intact. Respiratory: normal respiratory effort, lungs clear to auscultation Cardiovascular: RRR, no murmur, no edema Gastrointestinal (Abdomen): normal bowel sounds, soft, nontender, no hepatosplenomegaly Results & Data Vital Signs (Past 12 Hours) Vital Signs Temp Pulse Pulse Resp BP BP Pulse Ox 08/29/23 07:29 36.7 C 67 16 107/68 97 08/29/23 03:44 36.8 C 69 16 115/65 97 08/28/23 23:32 37.2 C 76 16 104/63 95 08/28/23 20:15 O2 Del Method 08/29/23 07:29 Room Air 08/29/23 03:44 Room Air 08/28/23 23:32 Room Air 08/28/23 20:15 Room Air Laboratory Results Hemoglobin is 10.6. Hematocrit is 32.9. Electrolytes are stable. PG Care Time/CCT Total # of Minutes Spent Total Time Spent with Patient: Total time spent is greater than 50% in coordination of care (as documented) at patient's floor/unit and/or counseling patient: Coding Level of Care Code None Diagnoses Status post right knee replacement Z96.651
[2023-08-29] MEDS ORDERED: FLUoxetine HCL 20 MG CAP PO SCH (09:00)
[2023-08-29] MEDS ORDERED: MULTIVITAMIN TAB PO SCH (09:00)
[2023-08-29] MEDS ORDERED: ATORVASTATIN 40 MG TAB PO SCH (09:00)
[2023-08-29] MEDS ORDERED: NON-FORMULARY MEDICATION (Biotin 1,000 mcg Tablet,Chewable) PO SCH (09:00)
[2023-08-29] MEDS ORDERED: LOSARTAN POTASSIUM 25 MG TAB PO SCH (09:00)
--- NOTE | 2023-09-07 06:23 | Discharge Summary ---
Date of Service September 07, 2023 Discharge Data Procedures Performed Operation Date: 08/28/23 08:50 Actual Procedures p Right Total Knee Arthroplasty(Right) - Zeus Grossman MD Hospital Course (1) Status post right knee replacement: This is a 67 year old patient admitted on 08/28/23 and underwent total knee arthroplasty. She tolerated the procedure well and there were no complications. Transferred to the PACU post op and later to the orthopedic floor for further care. She was given ancef for antibiotic prophylaxis. She was also given GENNA stockings, SCDs, and aspirin for DVT prophylaxis. Hemoglobin, hematocrit, and vital signs were monitored during her hospital stay and remained stable. Did not require any blood transfusions. There were no complications during her hospital stay. By post op day #1 the patient was tolerating a regular diet, pain was reasonably controlled with oral pain medicine, and she was participating in physical therapy. On post op day #1 the patient was discharged home. She was given printed discharge instructions including prescriptions for extra strength tylenol, aspirin, cefadroxil, zofran, ketorolac, senokot, and oxycodone. Continue physical therapy, weight bearing as tolerated. Continue GENNA stockings. Follow up approximately 2 weeks post op or sooner if there are problems or concerns. Coding Level of Care Code None Diagnoses Status post right knee replacement Z96.651
== END 2023-08-29 12:23 | disposition home or self-care (01) ==
LOC: 3E 07:12 → ASU 07:12